=== PATIENT | female | born 1955 ===

== ENCOUNTER 2020-11-17 | Outpatient (CLI) | payer OTHER | END 2020-11-17 07:17 | disposition home or self-care (01) | LOC: PPH VACUNA | PROVIDERS: ATTEND Emergency Medicine Pediatric Emergency Medicine | DX: Z23 Encounter for immunization (principal) ==

== ENCOUNTER 2020-12-08 | Outpatient (CLI) | payer OTHER | END 2020-12-08 17:44 | disposition home or self-care (01) | LOC: PPH VACUNA | PROVIDERS: ATTEND Emergency Medicine Pediatric Emergency Medicine | DX: Z23 Encounter for immunization (principal) ==

== ENCOUNTER 2022-01-20 14:34 | Emergency (ER) | payer OTHER ==
[~2022-01-20] VITALS: Ht 170.2 cm; Wt 90.7 kg
[2022-01-20] MEDS ORDERED: CIPRO500 MG PO ×2 (21:22→21:23)
== END 2022-01-20 21:30 | disposition home or self-care (01) ==
LOC: ER 14:34
DX: R10.2 Pelvic and perineal pain (principal)

== ENCOUNTER 2022-12-21 19:13 | Emergency (ER) | payer OTHER ==
[~2022-12-21] VITALS: Ht 167.6 cm; Wt 82.1 kg
[~2022-12-21 19:13] MED LIST: CIPRO500 MG PO
[2022-12-21] MEDS ORDERED: OMEGA-31000 MG PO (19:29)
[2022-12-21] MEDS ORDERED: MULTI VITAMIN1 EACH PO (19:29)
== END 2022-12-22 08:49 | disposition home or self-care (01) ==
LOC: ER 19:13
DX: M54.9 Dorsalgia, unspecified (principal); N12 Tubulo-interstitial nephritis, not specified as acute or chronic; N13.1 Hydronephrosis with ureteral stricture, not elsewhere classified; N20.1 Calculus of ureter

== ENCOUNTER 2023-01-20 10:42 | Outpatient (CLI) | payer OTHER ==
[~2023-01-20 10:42] MED LIST changes: +MULTI VITAMIN1 EACH PO; +OMEGA-31000 MG PO
== END 2023-01-20 10:47 | disposition home or self-care (01) ==
LOC: MAMO-SONO 10:42
PROVIDERS: ATTEND Family Medicine
DX: Z12.31 Encounter for screening mammogram for malignant neoplasm of breast (principal); N63.0 Unspecified lump in unspecified breast; N64.0 Fissure and fistula of nipple; N60.12 Diffuse cystic mastopathy of left breast

== ENCOUNTER 2024-05-31 14:22 | Outpatient (CLI) | payer OTHER | END 2024-05-31 14:26 | disposition home or self-care (01) | LOC: MAMO-SONO 14:22 | PROVIDERS: ATTEND Family Medicine | DX: N63.0 Unspecified lump in unspecified breast (principal); N64.0 Fissure and fistula of nipple; Z12.31 Encounter for screening mammogram for malignant neoplasm of breast ==

== ENCOUNTER 2025-05-27 13:56 | Outpatient (CLI) | payer OTHER | END 2025-05-27 13:59 | disposition home or self-care (01) | LOC: MAMO-SONO 13:56 | PROVIDERS: ATTEND Family Medicine | DX: N63.0 Unspecified lump in unspecified breast (principal); Z12.31 Encounter for screening mammogram for malignant neoplasm of breast ==